=== PATIENT | male | born 1985 | race African-American/Black ===

== ENCOUNTER 2024-12-26 13:20 | Emergency (ER) | payer MEDICAID ==
[~2024-12-26] VITALS: Ht 182.9 cm; Wt 75.0 kg
[2024-12-26 13:26] VITALS: BP 144/86; PULSE 94; RESP 18; TEMP 37.1; O2SAT 98
[2024-12-26] MEDS: IBUPROFEN 600MG TABLET PO ONE (16:18)
[2024-12-26] MEDS: TETANUS, DIPHTHERIA, PERTUSSIS VAC/PF 0.5ML (>10YR OLD) IM ONE (16:19)
== END 2024-12-26 16:30 | disposition home or self-care (01) ==
LOC: ER 14:01
DX: S80.811A Abrasion, right lower leg, initial encounter (principal); Z98.890 Other specified postprocedural states; W54.0XXA Bitten by dog, initial encounter; Y93.89 Activity, other specified; Y92.89 Other specified places as the place of occurrence of the external cause; Y99.8 Other external cause status
CPT/HCPCS: 90471; 90715; 99283